=== PATIENT | male | born 1980 | race Hispanic/Latino ===

== ENCOUNTER 2021-04-17 10:24 | Emergency (ER) | payer OTHER ==
[2021-04-17] MEDS ORDERED: Ketorolac Tromethamine 30 MG/ML VIAL ONE (11:07)
[2021-04-17 11:21] LABS: #Eosinphils 0.1 thou/uL (0.0-0.7); #Lymphocytes 1.7 thou/uL (1.20-3.40); #Neutrophils 10.9 thou/uL (1.40-6.50); %Basophils 0.2 % (0.0-1.0); %Eosinophils 0.8 % (0.0-10.0); %Lymphocytes 12.6 % (21.0-51.0); %Monocytes 7.1 % (0.0-10.0); %Neutrophils 79.2 % (42.0-75.0); Mean Corpuscular HGB CONC 33.3 g/dL (32.0-36.0); Mean Corpuscular Volume 90.3 fL (78.0-98.0); Mean Platelet Volume 8.6 fL (7.4-10.4); Platelet Count 159 thou/uL (130-400); RBC Distribution Width 11.6 % (11.5-14.5); Red Blood Cell (RBC) Count 4.99 mill/uL (4.70-6.10); White Blood Cell (WBC) Count 13.7 thou/uL (4.8-10.8)
[2021-04-17 11:45] LABS: ALT (SGPT) 20 U/L (8-55); AST (SGOT) 20 U/L (5-34); Albumin 4.1 g/dL (3.5-5.0); Alkaline Phosphatase 74 U/L (40-110); Anion Gap 11 mmol/L (10-20); BUN (Urea Nitrogen) 11 mg/dL (8.9-20.6); Bilirubin, Total 1.3 mg/dL (0.2-1.2); Calc. Creatinine Clearance 0 mL/min (70-130); Calcium 9.4 mg/dL (7.8-10.44); Carbon Dioxide 25 mmol/L (22-29); Chloride 105 mmol/L (98-107); Globulin 3.9 g/dL (2.4-3.5); Glucose 107 mg/dL (70-105); Potassium 4.3 mmol/L (3.5-5.1); Sodium 137 mmol/L (136-145)
[2021-04-17] MEDS ORDERED: cefTRIAXone\\ROCEPHIN 1 GM VIAL ONE (13:19)
[2021-04-17] MEDS ORDERED: Doxycycline 100 MG CAP PO SCH (13:30)
[2021-04-17 13:48] LABS: Bilirubin Negative (Negative); Blood, Urine Negative (Negative); Clarity Clear (Clear); Glucose, Urine (Dipstick) Normal (Negative); Ketone, Urine Negative (Negative); Leukocyte Negative Leu/uL (Negative); Nitrite Negative (Negative); Protein, Urine (Dipstick) 10 mg/dL (Neg-Trace); Specific Gravity, Urine 1.026 (1.002-1.036); Urobilinogen Normal mg/dL (Less than 2); pH, Urine 6.5 (5.0-9.0)
[2021-04-19 05:15] LABS: Chlam.trachomatis by PCR,Urine Not Detected (NotDetected)
== END 2021-04-17 19:59 | disposition short-term general hospital (02) ==
LOC: ERS 10:24 → EEVIPCON 10:24 → ERS 19:59
DX: N49.2 Inflammatory disorders of scrotum (principal)
CPT/HCPCS: 76870; 80053; 81003; 85025; 87040; 87491; 87591; 93976; 96365; 96375; J0696; J1885